=== PATIENT | female | born 2000 | race Caucasian/White ===

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

== ENCOUNTER 2022-01-16 21:42 | Emergency (ER) | payer OTHER ==
[2022-01-16 22:06] VITALS: BP 126/78; TEMP 98.6; BMI 28.3
[2022-01-16 22:42] VITALS: PULSE 83
[2022-01-16 23:13] LABS: EOS % 0.9 % (0-4.5); HEMATOCRIT 39.6 % (32.4-45.2); HEMOGLOBIN 13.1 GM/dL (10.7-15.3); LYMPH % 27.9 % (8-40); MCH 27.5 pg (25.7-33.7); MEAN CELL VOLUME 83.4 fl (80-96); MEAN PLT VOLUME 7.3 fl (7.5-11.1); NEUT % 63.2 % (42.8-82.8); PLATELET COUNT 340 10^3/uL (134-434); RBC 4.75 M/mm3 (3.60-5.2); RDW 13.7 % (11.6-15.6); WHITE BLOOD COUNT 9.2 K/mm3 (4.0-10.0)
[2022-01-16] MEDS ORDERED: ONDANSETRON 4 MG/2 ML VIAL IVPUSH ONE (23:22)
[2022-01-16 23:35] LABS: CHLORIDE 107 mmol/L (98-107); SODIUM 140 mmol/L (136-145)
[2022-01-16 23:37] LABS: ALBUMIN 4.1 g/dl (3.4-5.0); ANION GAP 5 MMOL/L (8-16); BLOOD UREA NITROGEN 9.4 mg/dL (7-18); CO2 27 mmol/L (21-32); GLUCOSE,RANDOM 98 mg/dL (74-106)
[2022-01-16 23:40] LABS: SGPT/ALT 18 U/L (13-61)
[2022-01-16 23:41] LABS: CREATININE 0.8 mg/dL (0.55-1.3); SGOT/AST 10 U/L (15-37)
[2022-01-16 23:42] LABS: BILIRUBIN,TOTAL 0.2 mg/dL (0.2-1); TOT PROT 7.6 g/dl (6.4-8.2)
[2022-01-16 23:43] LABS: ALK PHOS 97 U/L (45-117)
[2022-01-17] MEDS ORDERED: ONDANSETRON 4 MG/2 ML VIAL ONE (00:13)
[2022-01-17 00:30] LABS: EPI CELLS >36 /uL (0-25.1); HYALINE CASTS 3 /uL (0-3.1); PH,URINE 5.5 (5.0-8.0); URINE APPEARANCE CLEAR; URINE BACTERIA 80 /uL (0-1359); URINE BILIRUBIN NEGATIVE (NEGATIVE); URINE COLOR YELLOW; URINE GLUCOSE (UA) NEGATIVE (NEGATIVE); URINE KETONE NEGATIVE (NEGATIVE); URINE LEUK ESTERASE NEGATIVE (NEGATIVE); URINE NITRITE NEGATIVE (NEGATIVE); URINE PROTEIN TRACE (NEGATIVE); URINE RBC 2451 /uL (0-23.9); URINE WBC 45 /uL (0-25.8)
[2022-01-17] MEDS ORDERED: KETOROLAC TROMETHAMINE 30 MG/1 ML VIAL IVPUSH ONE (00:30)
[2022-01-17] MEDS ORDERED: KETOROLAC TROMETHAMINE 30 MG/1 ML VIAL ONE (01:22)
== END 2022-01-17 03:35 | disposition home or self-care (01) ==
LOC: JER 21:42
PROC: 3E033GC Introduction of Other Therapeutic Substance into Peripheral Vein, Percutaneous Approach (ICD-10-PCS; principal; 2022-01-16)
DX: R10.9 Unspecified abdominal pain (principal)
CPT/HCPCS: 36415; 74176-TC; 80053; 81003; 84702; 85025; 87086; 93005; 93010; 99285-25

== ENCOUNTER 2022-11-25 14:13 | Emergency (ER) | payer OTHER ==
[2022-11-25] MEDS ORDERED: SODIUM CHLORIDE 0.9% 500 ML INFUS.BAG IV ONE (14:57)
[2022-11-25] MEDS ORDERED: NALOXONE HCL 0.4 MG/ML VIAL ONE (15:21)
[2022-11-25 15:25] LABS: BASO % 0.6 % (0-2.0); EOS % 0.7 % (0-4.5); HEMATOCRIT 40.6 % (32.4-45.2); LYMPH % 25.8 % (8-40); MCH 25.9 pg (25.7-33.7); MCHC 31.9 g/dl (32.0-36.0); MEAN PLT VOLUME 7.7 fl (7.5-11.1); MONO % 5.7 % (3.8-10.2); NEUT % 67.2 % (42.8-82.8); PLATELET COUNT 401 10^3/uL (134-434); RBC 5.02 M/mm3 (3.60-5.2); WHITE BLOOD COUNT 12.2 K/mm3 (4.0-10.0)
[2022-11-25 15:49] LABS: ALBUMIN 4.1 g/dl (3.4-5.0); BLOOD UREA NITROGEN 12.4 mg/dL (7-18); CALCIUM 9.6 mg/dL (8.5-10.1)
[2022-11-25 15:52] LABS: CREATININE 0.8 mg/dL (0.55-1.3)
[2022-11-25 15:54] LABS: BILIRUBIN,TOTAL 0.7 mg/dL (0.2-1); TOT PROT 7.6 g/dl (6.4-8.2)
[2022-11-25 16:32] LABS: VENOUS O2 SATURATION 43.7 % (70-80); VENOUS PCO2 41.7 mmHg (38-52); VENOUS PH 7.364 (7.310-7.410)
[2022-11-25 16:37] LABS: PH,URINE 5.5 (5.0-8.0); URINE APPEARANCE CLEAR; URINE BILIRUBIN NEGATIVE (NEGATIVE); URINE COLOR YELLOW; URINE GLUCOSE (UA) NEGATIVE (NEGATIVE); URINE KETONE 2+ (NEGATIVE); URINE LEUK ESTERASE NEGATIVE (NEGATIVE); URINE NITRITE NEGATIVE (NEGATIVE); URINE PROTEIN NEGATIVE (NEGATIVE)
[2022-11-25 16:40] LABS: OPIATES, URI NEGATIVE (NEGATIVE); URINE AMPHETAMINES NEGATIVE (NEGATIVE); URINE BARBITURATES NEGATIVE (NEGATIVE)
[2022-11-25 16:48] LABS: COCAINE, UR NEGATIVE (NEGATIVE); METHADONE, UR NEGATIVE (NEGATIVE); PHENCYCLIDINE,URINE NEGATIVE (NEGATIVE); URINE BENZODIAZEPINES POSITIVE (NEGATIVE)
[2022-11-25 17:21] VITALS: RESP 18
[2022-11-26] MEDS ORDERED: MIDAZOLAM HCL 2 MG/2 ML SINGLE DOSE VIAL IVPUSH ONE (00:58)
[2022-11-26] MEDS ORDERED: MIDAZOLAM HCL 2 MG/2 ML SINGLE DOSE VIAL ONE (00:59)
[2022-11-26 11:13] VITALS: BP 111/71; PULSE 97; TEMP 97.3
== END 2022-11-26 11:13 | disposition home or self-care (01) ==
LOC: JER 14:13
PROC: 3E033NZ Introduction of Analgesics, Hypnotics, Sedatives into Peripheral Vein, Percutaneous Approach (ICD-10-PCS; principal; 2022-11-25)
PROC: 3E033NZ Introduction of Analgesics, Hypnotics, Sedatives into Peripheral Vein, Percutaneous Approach (ICD-10-PCS; 2022-11-25)
DX: R41.82 Altered mental status, unspecified (principal); F13.20 Sedative, hypnotic or anxiolytic dependence, uncomplicated; R45.851 Suicidal ideations
CPT/HCPCS: 36415; 70450-TC; 80053; 80307; 81003; 82803; 82962; 83690; 84439; 84443; 84703; 85025; 86850; 86900; 86901; 87086; 93005; 93010; 99285-25

== ENCOUNTER 2023-05-18 21:29 | Emergency (ER) | payer OTHER ==
[2023-05-18 21:44] VITALS: BP 116/69; PULSE 77; RESP 20; TEMP 97.7
[2023-05-18] MEDS ORDERED: LIDOCAINE PATCH REMOVAL MC SCH (22:00)
[2023-05-18] MEDS ORDERED: ACETAMINOPHEN 325 MG TABLET (FP) PO ONE (23:10)
[2023-05-18] MEDS ORDERED: ACETAMINOPHEN 325 MG TABLET (FP) ONE (23:19)
[2023-05-18] MEDS ORDERED: LIDOCAINE 5% TOPICAL PATCH TP ONE (23:21)
[2023-05-18] MEDS ORDERED: ONDANSETRON *ODT* 4 MG TABLET SL ONE (23:21)
[2023-05-18] MEDS ORDERED: ONDANSETRON *ODT* 4 MG TABLET ONE (23:58)
[2023-05-18] MEDS ORDERED: LIDOCAINE 5% TOPICAL PATCH ONE (23:58)
== END 2023-05-19 00:56 | disposition left against medical advice (07) ==
LOC: JER 21:29
DX: M54.2 Cervicalgia (principal); G44.319 Acute post-traumatic headache, not intractable; R11.0 Nausea; R07.89 Other chest pain; V49.40XA Driver injured in collision with unspecified motor vehicles in traffic accident, initial encounter
CPT/HCPCS: 71046-TC-FY; 99283-25

== ENCOUNTER 2023-08-24 16:12 | Inpatient (IN) | payer OTHER ==
[2023-08-24] MEDS ORDERED: SODIUM CHLORIDE 0.9% 500 ML INFUS.BAG IV ONE (17:12)
[2023-08-24] MEDS ORDERED: ACETAMINOPHEN 1000 MG/100 ML BAG IVPB ONE (17:12)
[2023-08-24] MEDS ORDERED: ONDANSETRON 4 MG/2 ML VIAL IVPUSH ONE (17:12)
[2023-08-24 17:36] LABS: BASO % 0.6 % (0-2.0); EOS % 0.3 % (0-4.5); HEMATOCRIT 39.5 % (32.4-45.2); HEMOGLOBIN 12.6 GM/dL (10.7-15.3); LYMPH % 13.4 % (8-40); MCH 26.5 pg (25.7-33.7); MCHC 31.9 g/dl (32.0-36.0); MEAN PLT VOLUME 7.6 fl (7.5-11.1); MONO % 7.2 % (3.8-10.2); NEUT % 78.5 % (42.8-82.8); PLATELET COUNT 337 10^3/uL (134-434); RBC 4.76 M/mm3 (3.60-5.2); RDW 14.8 % (11.6-15.6); WHITE BLOOD COUNT 12.7 K/mm3 (4.0-10.0)
[2023-08-24] MEDS ORDERED: ACETAMINOPHEN INJECTION 100 ML IVPB ONE (17:45)
[2023-08-24] MEDS ORDERED: ONDANSETRON 4 MG/2 ML VIAL ONE (17:45)
[2023-08-24 18:01] LABS: POTASSIUM 4.1 mmol/L (3.5-5.1)
[2023-08-24 18:03] LABS: BLOOD UREA NITROGEN 12.6 mg/dL (7-18); CALCIUM 8.8 mg/dL (8.5-10.1)
[2023-08-24 18:07] LABS: CREATININE 1.3 mg/dL (0.55-1.3)
[2023-08-24 18:20] LABS: EPI CELLS 27 /uL (0-25.1); HYALINE CASTS 2 /uL (0-3.1); PH,URINE 5.5 (5.0-8.0); URINE APPEARANCE CLOUDY; URINE BACTERIA 178 /uL (0-1359); URINE BILIRUBIN NEGATIVE (NEGATIVE); URINE COLOR ORANGE; URINE GLUCOSE (UA) NEGATIVE (NEGATIVE); URINE KETONE 1+ (NEGATIVE); URINE LEUK ESTERASE TRACE (NEGATIVE); URINE NITRITE NEGATIVE (NEGATIVE); URINE PROTEIN 3+ (NEGATIVE); URINE RBC 3093 /uL (0-23.9); URINE UROBILINOGEN 0.2 mg/dL (0.2-1.0); URINE WBC 213 /uL (0-25.8)
[2023-08-24 18:25] LABS: HCG,QUALITATIVE URINE Negative
[2023-08-24] MEDS ORDERED: KETOROLAC TROMETHAMINE 30 MG/1 ML VIAL IVPUSH ONE (19:16)
[2023-08-24] MEDS ORDERED: KETOROLAC TROMETHAMINE 30 MG/1 ML VIAL ONE (19:18)
[2023-08-24] MEDS ORDERED: CEFTRIAXONE 1 GM in DEXTROSE 5%-WATER - 100 ML IVPB ONE (20:38)
[2023-08-24] MEDS ORDERED: TAMSULOSIN HCL 0.4 MG CAP PO ONE (20:38)
[2023-08-24] MEDS ORDERED: TAMSULOSIN HCL 0.4 MG CAP ONE (20:48)
[2023-08-24] MEDS ORDERED: CEFTRIAXONE 1 GM/50 ML BAG ONE (20:48)
[2023-08-24] MEDS ORDERED: ACETAMINOPHEN 1000 MG/100 ML BAG IVPB PRN (22:00)
[2023-08-24] MEDS ORDERED: ONDANSETRON 4 MG/2 ML VIAL IVPUSH PRN (22:01)
[2023-08-24] MEDS ORDERED: SODIUM CHLORIDE 1,000 ML IV SCH (23:30)
[2023-08-25 02:25] LABS: POTASSIUM 3.5 mmol/L (3.5-5.1)
[2023-08-25 02:27] LABS: CALCIUM 8.6 mg/dL (8.5-10.1)
[2023-08-25 02:28] LABS: ALBUMIN 4.1 g/dl (3.4-5.0); BLOOD UREA NITROGEN 12.1 mg/dL (7-18); MAGNESIUM 2.4 mg/dL (1.8-2.4)
[2023-08-25 02:31] LABS: CREATININE 1.2 mg/dL (0.55-1.3); PHOSPHOROUS 3.8 mg/dL (2.5-4.9); URIC ACID 3.9 mg/dL (2.6-7.2)
[2023-08-25 02:32] LABS: BILIRUBIN,TOTAL 0.5 mg/dL (0.2-1); TOT PROT 7.5 g/dl (6.4-8.2)
[2023-08-25] MEDS: ACETAMINOPHEN 325 MG TABLET (FP) PO SCH ×5 (04:44→15:45)
[2023-08-25] MEDS ORDERED: TAMSULOSIN HCL 0.4 MG CAP PO SCH (08:30)
[2023-08-25 09:18] LABS: HEMATOCRIT 33.7 % (32.4-45.2); HEMOGLOBIN 11.1 GM/dL (10.7-15.3); MCH 27.3 pg (25.7-33.7); MCHC 32.9 g/dl (32.0-36.0); MEAN PLT VOLUME 7.5 fl (7.5-11.1); PLATELET COUNT 256 10^3/uL (134-434); RBC 4.05 M/mm3 (3.60-5.2); RDW 14.5 % (11.6-15.6); WHITE BLOOD COUNT 7.7 K/mm3 (4.0-10.0)
[2023-08-25] MEDS ORDERED: CEFTRIAXONE 1 GM in DEXTROSE 5%-WATER - 50 ML IVPB SCH (10:00)
[2023-08-25 12:51] LABS: INR 1.23 (0.83-1.09); PROTHROMBIN TIME (PATIENT) 14.2 SEC (9.7-13.0)
[2023-08-25 14:47] VITALS: BMI 30.9
[2023-08-25] MEDS ORDERED: LIDOCAINE HCL/PF 2% SDV 5ML VIAL ONE (16:15)
[2023-08-25] MEDS ORDERED: MIDAZOLAM HCL 2 MG/2 ML SINGLE DOSE VIAL ONE (16:15)
[2023-08-25] MEDS ORDERED: PROPOFOL 20 ML ONE (16:15)
[2023-08-25] MEDS ORDERED: DEXAMETHASONE SOD PHOSPHATE 4 MG/1 ML VIAL ONE (17:15)
[2023-08-25] MEDS ORDERED: KETOROLAC TROMETHAMINE 30 MG/1 ML VIAL ONE (17:15)
[2023-08-25] MEDS ORDERED: ceFAZolin SODIUM 1 GM VIAL ONE (17:15)
[2023-08-25] MEDS ORDERED: ceFAZolin SODIUM 1 GM VIAL IVPB ONE (17:15)
[2023-08-25] MEDS ORDERED: ONDANSETRON 4 MG/2 ML VIAL ONE (17:15)
[2023-08-25] MEDS ORDERED: PROMETHAZINE HCL 25 MG/1 ML VIAL IVPB PRN (17:57)
[2023-08-25] MEDS ORDERED: ONDANSETRON 4 MG/2 ML VIAL IVPUSH PRN (17:57)
[2023-08-25] MEDS ORDERED: ACETAMINOPHEN 1000 MG/100 ML BAG IVPB ONE (17:58)
[2023-08-25] MEDS ORDERED: LACTATED RINGERS SOLUTION 1,000 ML IV SCH (18:00)
[2023-08-25] MEDS ORDERED: SODIUM CHLORIDE 1,000 ML IV SCH (18:16)
[2023-08-25] MEDS ORDERED: ACETAMINOPHEN 1000 MG/100 ML BAG IVPB PRN (18:16)
[2023-08-25] MEDS ORDERED: ACETAMINOPHEN INJECTION 100 ML IVPB ONE (18:24)
[2023-08-26] MEDS: ACETAMINOPHEN 325 MG TABLET (FP) PO SCH ×7 (00:22→22:34)
[2023-08-26 09:32] LABS: BASO % 0.2 % (0-2.0); HEMOGLOBIN 11.6 GM/dL (10.7-15.3); LYMPH % 9.9 % (8-40); MCH 26.9 pg (25.7-33.7); MCHC 32.2 g/dl (32.0-36.0); MEAN CELL VOLUME 83.8 fl (80-96); MEAN PLT VOLUME 8.2 fl (7.5-11.1); MONO % 4.1 % (3.8-10.2); NEUT % 85.8 % (42.8-82.8); PLATELET COUNT 305 10^3/uL (134-434); RBC 4.29 M/mm3 (3.60-5.2); RDW 14.3 % (11.6-15.6); WHITE BLOOD COUNT 12.2 K/mm3 (4.0-10.0)
[2023-08-26] MEDS: CEFTRIAXONE 1 GM in DEXTROSE 5%-WATER - 50 ML IVPB SCH (09:37)
[2023-08-26 09:56] LABS: ALBUMIN 3.4 g/dl (3.4-5.0); BLOOD UREA NITROGEN 13.1 mg/dL (7-18)
[2023-08-26 09:59] LABS: CREATININE 0.8 mg/dL (0.55-1.3)
[2023-08-26] MEDS ORDERED: CEFTRIAXONE 1 GM in DEXTROSE 5%-WATER - 50 ML IVPB SCH (10:00)
[2023-08-26 10:01] LABS: BILIRUBIN,TOTAL 0.6 mg/dL (0.2-1); TOT PROT 6.7 g/dl (6.4-8.2)
[2023-08-26] MEDS: ONDANSETRON 4 MG/2 ML VIAL IVPUSH PRN ×2 (10:39→19:41)
[2023-08-26] MEDS ORDERED: PROCHLORPERAZINE INJECTION 10 MG/2 ML VIAL IVPB ONE (13:56)
[2023-08-26] MEDS ORDERED: SODIUM CHLORIDE 250 ML IV STA (13:56)
[2023-08-27] MEDS: ACETAMINOPHEN 325 MG TABLET (FP) PO SCH ×2 (05:42→10:56)
[2023-08-27 06:55] VITALS: PULSE 69
[2023-08-27 10:55] VITALS: BP 129/68; RESP 18; TEMP 98.1
[2023-08-27] MEDS: CEFTRIAXONE 1 GM in DEXTROSE 5%-WATER - 50 ML IVPB SCH (10:55)
== END 2023-08-27 16:17 | disposition home or self-care (01) | DRG 446 ==
LOC: JER 16:12 → JERBED 20:49 → J7W 08-25 01:11
PROVIDERS: ADMIT Internal Medicine; ATTEND Internal Medicine
PROC: 0TC68ZZ Extirpation of Matter from Right Ureter, Via Natural or Artificial Opening Endoscopic (ICD-10-PCS; principal; 2023-08-25 16:30)
PROC: 0T768DZ Dilation of Right Ureter with Intraluminal Device, Via Natural or Artificial Opening Endoscopic (ICD-10-PCS; 2023-08-25 16:30)
PROC: BT1DZZZ Fluoroscopy of Right Kidney, Ureter and Bladder (ICD-10-PCS; 2023-08-25 16:30)
DX: N13.2 Hydronephrosis with renal and ureteral calculous obstruction (principal); J45.909 Unspecified asthma, uncomplicated; E78.5 Hyperlipidemia, unspecified; G43.909 Migraine, unspecified, not intractable, without status migrainosus
CPT/HCPCS: 36415; 74176-TC; 76000-TC-FY; 80048; 80053; 81003; 82360; 82507; 83735; 83945; 83970; 84100; 84550; 84703; 85025; 85027; 85610; 86850; 86900; 86901; 87086; 94760; 97116-GP; 97161-GP; 99285-25; C1758; C2617